=== PATIENT | female | born 1975 | race Caucasian/White ===

== ENCOUNTER 2020-10-09 14:29 | Outpatient (CLI) | payer OTHER | END 2020-10-09 14:33 | disposition home or self-care (01) | LOC: LAB 14:29 | PROVIDERS: ATTEND Radiology Diagnostic Radiology | DX: N20.0 Calculus of kidney (principal) ==

== ENCOUNTER 2021-01-23 07:15 | Inpatient (IN) | payer OTHER ==
[~2021-01-23] VITALS: Ht 157.5 cm; Wt 63.5 kg
[2021-01-25] MEDS ORDERED: MECLIZINE HCL12.5 MG (07:57)
[2021-01-25] MEDS ORDERED: ENOXAPARIN40 MG/0.4 (07:57)
[2021-01-25] MEDS ORDERED: TRAM1TAB98 (07:57)
[2021-01-25] MEDS ORDERED: CLINDAMYCIN PHO40 GM (07:57)
[2021-01-29] MEDS ORDERED: KETO10TA2 PO (13:05)
== END 2021-01-29 13:36 | disposition home or self-care (01) | DRG 743 ==
LOC: EDSTATUS 07:15 → OB/GYN 01-25 05:10 → O/R 01-25 05:10 → CIR.AMB 01-25 07:15 → EDSTATUS 01-25 07:15 → OB/GYN 01-25 07:15
PROVIDERS: ADMIT Obstetrics & Gynecology; ATTEND Obstetrics & Gynecology
PROC: 0UJD4ZZ Inspection of Uterus and Cervix, Percutaneous Endoscopic Approach (ICD-10-PCS; 2021-01-25)
PROC: 0UNF0ZZ Release Cul-de-sac, Open Approach (ICD-10-PCS; 2021-01-25)
PROC: 0UT70ZZ Resection of Bilateral Fallopian Tubes, Open Approach (ICD-10-PCS; 2021-01-25)
PROC: 0TJB8ZZ Inspection of Bladder, Via Natural or Artificial Opening Endoscopic (ICD-10-PCS; 2021-01-25)
PROC: 0UT90ZZ Resection of Uterus, Open Approach (ICD-10-PCS; principal; 2021-01-25 15:45)
DX: D25.1 Intramural leiomyoma of uterus (principal); D25.2 Subserosal leiomyoma of uterus; N88.1 Old laceration of cervix uteri; Z20.822 Contact with and (suspected) exposure to COVID-19; R10.2 Pelvic and perineal pain